=== PATIENT | female | born 2000 | race African-American/Black ===

== ENCOUNTER 2022-06-13 14:33 | Emergency (ER) | payer OTHER ==
[~2022-06-13] VITALS: Ht 161.3 cm; Wt 70.8 kg
[2022-06-13 15:16] LABS: BASO% 0.7 % (0-3); EOS% 2.9 % (0-8); HEMOGLOBIN 14.1 g/dl (12.0-16.0); IMMATURE GRANULOCYTES 0.1 % (0.0-5.0); LYMPH% 43.5 % (15-41); MEAN CELL VOLUME 92.3 fL CALC (80.0-100.0); MEAN CORPUSCULAR HGB 30.3 pG CALC (26.0-32.0); MEAN CORPUSCULAR HGB CONC 32.8 g/dL CAL (32.0-36.0); MONO% 7.2 % (2-13); NEUT# 3.09 thou/uL (2.00-7.15); NEUT% 45.6 % (42-76); RED BLOOD COUNT 4.66 mill/uL (4.20-5.60); RED CELL DISTRI WIDTH 12.5 % (11.5-15.5)
[2022-06-13 15:24] LABS: ALBUMIN 4.4 g/dL (3.2-5.0); ANION GAP 9 (6-22 (CALC)); BUN 15 mg/dL (7-17); BUN/CREATININE RATIO 15 (12-20 (CALC)); CARBON DIOXIDE 27 mmol/l (22-30); CHLORIDE 105 mmol/l (95-108); GFR FOR AFR.AMER. > 60 ML/MIN (>=60 (CALC)); GFR OTHER RACES > 60 ML/MIN (>=60 (CALC)); LIPASE 158 u/l (23-300); POTASSIUM 3.9 mmol/l (3.5-5.1); SGOT/AST 28 u/l (14-36); SODIUM 137 mmol/l (137-146); TOTAL PROTEIN 7.9 g/dL (6.3-8.2)
[2022-06-13 15:31] LABS: ALKALINE PHOSPHATASE 66 u/l (38-126); BILIRUBIN, TOTAL 0.2 mg/dL (0.02-1.3)
[2022-06-13 16:25] LABS: URINE BILIRUBIN - DIPSTICK NEGATIVE (NEGATIVE); URINE BLOOD DIPSTICK NEGATIVE (NEGATIVE); URINE COLOR YELLOW; URINE GLUCOSE - DIPSTICK NEGATIVE (NEGATIVE); URINE KETONE NEGATIVE (NEGATIVE); URINE LEUK ESTERASE NEGATIVE (NEGATIVE); URINE PH 7.5 (4.5-8.0); URINE PROTEIN - DIPSTICK NEGATIVE (NEG-TRACE); URINE SPECIFIC GRAVITY >=1.030; URINE UROBILINOGEN - DIPSTICK 0.2 E.U./dL (0.2)
[2022-06-13] MEDS ORDERED: NAPROXEN500 MG PO (16:26)
[2022-06-13 16:27] LABS: URINE NITRITE - DIPSTICK NEGATIVE (Negative)
[2022-06-13 16:48] VITALS: BP 137/86
== END 2022-06-13 16:55 | disposition home or self-care (01) ==
LOC: ED 14:33
PROVIDERS: Nurse Practitioner
DX: R07.89 Other chest pain (principal)